=== PATIENT | female | born 1995 | race Two or more races ===

== ENCOUNTER 2020-03-23 10:33 | Emergency (ER) | payer SELFPAY ==
[2020-03-23 10:49] VITALS: BP 154/95; PULSE 120; RESP 17; TEMP 37.3; O2SAT 98; BMI 45.4
--- NOTE | 2020-03-23 10:53 | ED_ITS ---
HPI - URI/Sore Throat General Chief Complaint: General Medical Stated Complaint: SORE THROAT Time Seen by Provider: 03/23/20 10:52 History of Present Illness HPI Narrative: Patient complains of sore throat with pain on swallowing for past week, she got a know if negative COVID test from her school and she continues complaining of sore throat possible fever she did not check with no runny nose no cough no vomiting Related Data Previous Rx's Medication Instructions Recorded azithromycin [Zithromax] 250 mg PO DAILY 5 Days #5 tab 03/23/20 ibuprofen 600 mg PO Q6H PRN #20 tab 03/23/20 Allergies Allergy/AdvReac Type Severity Reaction Status Date / Time amoxicillin [AMOXICILLIN] Allergy Unknown UNKNOWN Unverified 03/07/20 16:25 Sulfa (Sulfonamide Allergy Unknown Verified 06/30/13 00:00 Antibiotics) sulfamethoxazole Allergy Unknown UNKNOWN Unverified 03/07/20 16:25 [From BACTRIM] trimethoprim [From BACTRIM] Allergy Unknown UNKNOWN Unverified 03/07/20 16:25 Review of Systems Review of Systems: patient started with a mild sore throat about a week ago and the sore throat has gotten worse with pain on swallowing but she is able to swallow and to drink, she has no runny nose no cough no ear pain no chills no nausea no vomiting no abdominal pain no rash PMFSH Past Medical History Source: nursing notes reviewed Social History Social History Alcohol intake: unknown Smoking Status: Unknown if ever smoked Use of substances other than those prescribed or required for medical reasons: No Advance Directives: No Advance Directives Information Provided: No Physical Exam Vital Signs and I&O and Narrative: Vital Signs and I&O: Vital Signs Temp 99.1 F 03/23/20 10:49 Pulse 120 H 03/23/20 10:49 Resp 17 03/23/20 10:49 BP 154/95 H 03/23/20 10:49 Pulse Ox 98 03/23/20 11:01 Intake & Output 03/22/20 03/23/20 03/23/20 18:59 06:59 18:59 Weight 120.202 kg Body Mass Index 45.4 appearance is alert oriented x3 comfortable no acute distress, speaks in full sentences ENT exam there is no tenderness of the sinuses no nasal discharge Pharynx has 2 symmetrically enlarged red tonsils with white exudate the uvula is midline the mucous membranes are well hydrated there is no trismus, the voice is normal The neck is supple Respiratory no respiratory distress, breath sounds are clear Abdomen soft nontender Extremities full range of motion x4 neuro A&O x3 no motor deficit Course Reevaluation(s) Reevaluation #1: patient is noted to have a possible low-grade fever and an elevated pulse as well as an elevated blood pressure She has no history of high blood pressure and she has no complaints of chest pain weakness headache and she is advised to drink plenty of fluids, take Tylenol for fever and body aches and to follow with primary care physician for f urther evaluation of possible elevated blood pressure Discharge Plan Discharge Clinical Impression: Pharyngitis Patient Disposition: Home, Self-Care Additional Instructions: drink plenty of fluids We gave 1 dose of steroid Decadron in the ER which hopefully will reduce inflammation and discomfort Your blood pressure was elevated so best plan would be to get a home blood pressure cuff and keep a record and make an appointment with a primary doctor to determine whether you actually have high blood pressure or not Return to ER any time for vomiting, worse pain and swelling, difficulty swallowing or breathing, any worse condition or any concerns Prescriptions: New azithromycin [Zithromax] 250 mg tablet 250 mg PO DAILY 5 Days Qty: 5 RF: 0 ibuprofen 600 mg tablet 600 mg PO Q6H PRN (Reason: fever or pain) Qty: 20 RF: 0
[2020-03-23 11:01] VITALS: O2SAT 98
[2020-03-23 11:34] VITALS: PULSE 70
[2020-03-23] MEDS: predniSONE 20 MG TABLET 60 MG PO (11:38)
== END 2020-03-23 11:42 | disposition home or self-care (01) ==
PROVIDERS: Emergency Provider Emergency Medicine
DX: J02.9 Acute pharyngitis, unspecified (principal); R50.9 Fever, unspecified
CPT/HCPCS: 99283; 99284